=== PATIENT | male | born 1985 | race Caucasian/White ===

== ENCOUNTER 2016-07-27 21:19 | Emergency (ER) | payer OTHER ==
[~2016-07-27] VITALS: Ht 188 cm; Wt 102.0 kg
[2016-07-27 21:54] LABS: BASOPHIL COUNT 0.1 K/uL (0-0.1); EOSINOPHIL (%) 1.6 % (0-5); EOSINOPHIL COUNT 0.2 K/uL (0-0.3); HEMATOCRIT 45.8 % (38.0-50.0); IMMATURE GRANULOCYTE (%) 0.2 % (0.0-0.7); IMMATURE GRANULOCYTE COUNT 0.2 K/uL; LYMPHOCYTE COUNT 1.4 K/uL (1.0-2.8); MCHC 35.2 G/DL (30.0-36.0); MCV 88.2 FL (86-99); MEAN PLAT.VOLUME 10.2 uM^3 (9.0-12.4); MONOCYTE (%) 7.9 % (3-12); MONOCYTE COUNT 0.9 K/uL (0-0.8); NEUTROPHIL (%) 77.4 % (45-76); NEUTROPHIL COUNT 8.5 K/uL (1.8-6.4); PLATELET COUNT 284 K/uL (156-360); RBC DIS.WIDTH-CV 12.8 % (11.8-14.6); RBC DIS.WIDTH-SD 41.3 % (39-53); RED BLOOD COUNT 5.19 M/uL (4.00-5.50)
[2016-07-27 22:03] LABS: AMYLASE 35 IU/L (1-118); CHLORIDE 106 mEq/L (99-109); POTASSIUM 3.3 mEq/L (3.7-5.4); SODIUM 139 mEq/L (136-147)
[2016-07-27 22:05] LABS: GLUCOSE 108 mg/dL (70-99)
[2016-07-27 22:06] LABS: ANION GAP 13 MEQ/L (2-14)
[2016-07-27 22:08] LABS: SERUM ETHYL ALCOHOL < 10 mg/dL
[2016-07-27 22:09] LABS: GFR ESTIMATE (CALCULATED) > 59 mL/min/
[2016-07-27 22:10] LABS: UREA NITROGEN (BUN) 13 mg/dL (9-23)
[2016-07-27 22:12] LABS: LIPASE 7 U/L (1.0-51.0)
[2016-07-27 22:20] VITALS: BP 154/82
== END 2016-07-28 00:51 | disposition home or self-care (01) ==
LOC: TRA 21:19 → EME 21:19 → TRA 07-28 00:51
PROVIDERS: Emergency Medicine
DX: S51.812A Laceration without foreign body of left forearm, initial encounter (principal); S30.1XXA Contusion of abdominal wall, initial encounter; S29.9XXA Unspecified injury of thorax, initial encounter; Y04.8XXA Assault by other bodily force, initial encounter; F17.200 Nicotine dependence, unspecified, uncomplicated
CPT/HCPCS: 71020; 73090; 74177; 80048; 81003; 82150; 83690; 85025; 86850; 86900; 86901; 99281; 99285; G0480; J1885; J7030